=== PATIENT | male | born 1960 | race Caucasian/White ===

== ENCOUNTER 2024-06-28 12:50 | Emergency (ER) | payer OTHER ==
[~2024-06-28] VITALS: Ht 188 cm; Wt 110.8 kg
[2024-06-28] MEDS ORDERED: ELIQUIS2.5 MG PO (13:17)
[2024-06-28] MEDS ORDERED: KAPSPARGO SPRIN25 MG PO (13:17)
[2024-06-28] MEDS ORDERED: COZAAR25 MG PO (13:17)
[2024-06-28] MEDS ORDERED: VITAMIN D210 MCG PO (13:18)
[2024-06-28] MEDS ORDERED: ALBUTEROL/IPRATROPIUM 3 ML NEB INH ONE (13:30)
[2024-06-28] MEDS ORDERED: VENTOLIN HFA18 GM INH (14:00)
[2024-06-28 14:05] VITALS: BP 158/98
--- NOTE | 2024-06-30 19:53 | EKG ---
[facility] [address] [facility] [place] [address] Signed Sinus bradycardia Otherwise normal ECG No previous ECGs available Confirmed by Dona Wilson MD ([id number]) on 06/30/2024 7:53:00 PM Electronically Signed By: DONA WILSON MD 06/30/241952 PATIENT NAME: SUNG VERDUZCO LUIS MIGUEL Electrocardiogram DATE OF : 64 PHYSICIAN: DONA WILSON MD REPORT #: [id number] REPORT IS CONFIDENTIAL AND NOT TO BE RELEASED WITHOUT AUTHORIZATION
== END 2024-06-28 14:05 | disposition home or self-care (01) ==
LOC: ED 12:50
DX: J06.9 Acute upper respiratory infection, unspecified (principal); J45.909 Unspecified asthma, uncomplicated; Z88.2 Allergy status to sulfonamides; Z88.8 Allergy status to other drugs, medicaments and biological substances; Z79.01 Long term (current) use of anticoagulants; Z79.899 Other long term (current) drug therapy
CPT/HCPCS: 71045; 93005; 93010; 94640; 99285-25

== ENCOUNTER 2024-10-07 15:53 | Emergency (ER) | payer OTHER ==
[~2024-10-07] VITALS: Ht 188 cm; Wt 109.8 kg
[~2024-10-07 15:53] MED LIST: COZAAR25 MG PO; ELIQUIS2.5 MG PO; KAPSPARGO SPRIN25 MG PO; VENTOLIN HFA18 GM INH; VITAMIN D210 MCG PO
[2024-10-07] MEDS ORDERED: COMBIVENT RESPIM4 GM INH (16:07)
[2024-10-07 16:16] LABS: BASOPHILS 0.8 % (0-2); EOSINOPHILS 11.3 % (0-6); HEMATOCRIT 46.5 % (35.0-50.0); HEMOGLOBIN 15.8 g/dL (12.0-18.0); LYMPHOCYTES 28.1 % (24-44); MCH 30.2 (27-36); MCV 88.7 fl (81-99); MONOCYTES 6.8 % (0-12); PLATELET COUNT 269 K/uL (140-440); RBC 5.25 M/ul (4.3-5.7)
[2024-10-07 16:38] LABS: ALBUMIN 3.8 g/dL (3.4-5.0); ANION GAP 12.7 (7-21); BILIRUBIN, TOTAL 0.3 ng/dL (0.2-1.0); BUN/CREATININE RATIO 14.65 (6.0-28.6); CALCIUM 8.6 mg/dL (8.5-10.1); CREATININE, SERUM 1.16 mg/dL (0.70-1.30); POTASSIUM 3.7 mmol/L (3.5-5.1); PROTEIN, TOTAL 7.6 g/dL (6.4-8.2)
[2024-10-07] MEDS ORDERED: ALBUTEROL/IPRATROPIUM 3 ML NEB INH ONE (17:30)
[2024-10-07] MEDS ORDERED: methylPREDNISolone SOD SUCC 125 MG/2 ML VIAL IV ONE (17:45)
[2024-10-07] MEDS ORDERED: ALBUTEROL SULFATE 0.5% 2.5 MG/0.5 ML VIAL INH ONE (18:00)
[2024-10-07] MEDS ORDERED: ADVAIR 250-501 EACH INH (19:16)
[2024-10-07] MEDS ORDERED: GUAIFEN-CODEINE10 ML PO (19:16)
[2024-10-07] MEDS ORDERED: METHYLPREDNISOLO4 M1 PO (19:16)
[2024-10-07 19:29] VITALS: BP 158/84
--- NOTE | 2024-10-09 10:15 | EKG ---
[facility] [address] [facility] [place] [address] Signed Normal sinus rhythm Normal ECG When compared with ECG of 28-JUN-2024 13:23, Vent. rate has increased BY 29 BPM QT has lengthened Confirmed by Richard Herndon DO ([id number]) on 10/09/2024 10:15:49 AM Electronically Signed By: RICHARD HERNDON DO 10/09/24 1015 PATIENT NAME: LUBASUNG Electrocardiogram DATE OF : 64 PHYSICIAN: RICHARD HERNDON DO REPORT #: [id number] REPORT IS CONFIDENTIAL AND NOT TO BE RELEASED WITHOUT AUTHORIZATION
== END 2024-10-07 19:30 | disposition home or self-care (01) ==
LOC: ED 15:53
PROVIDERS: Emergency Medicine
DX: J45.901 Unspecified asthma with (acute) exacerbation (principal); I48.91 Unspecified atrial fibrillation; I10 Essential (primary) hypertension; Z88.2 Allergy status to sulfonamides; Z88.8 Allergy status to other drugs, medicaments and biological substances; Z79.01 Long term (current) use of anticoagulants; Z79.899 Other long term (current) drug therapy
CPT/HCPCS: 36415; 71045; 80053; 83880; 84484; 85025; 93005; 93010; 94640; 96374; 99285-25; J2919